=== PATIENT | female | born 1980 | race Caucasian/White ===

== ENCOUNTER 2017-02-17 10:03 | Day surgery (SDC) | payer OTHER ==
[2017-02-14 12:41] VITALS: BMI 18.6
[~2017-02-17 10:03] MED LIST: LACTATED RINGERS 1,000 ML IV SCH
[2017-02-17 11:40] VITALS: RESP 16; TEMP 98.6
[2017-02-17] MEDS ORDERED: LIDOCAINE 1% 20 ML VIAL (10MG/ML) FOR IV START INTRADERMA ONE (11:48)
[2017-02-17] MEDS ORDERED: PROPOFOL 10 MG/ML 20 ML VIAL IV ONE (12:11)
[2017-02-17] MEDS ORDERED: LIDOCAINE 1% INJ 10MG/ML (20 ML MDV) ONE (12:11)
--- NOTE | 2017-02-17 12:22 | P.PCN ---
Date of Procedure: 02/17/17 Procedure(s) Performed: BRIEF HISTORY: Patient is a 36-year-old, pleasant, white female, scheduled for an upper endoscopy as a part of evaluation of abdominal pain, abdominal bloating and possible celiac panel. PROCEDURE PERFORMED: Esophagogastroduodenoscopy with biopsy. PREOPERATIVE DIAGNOSIS: Abdominal pain/abdominal bloating and positive celiac panel IV sedation per anesthesia. PROCEDURE: After informed consent was obtained, the patient was brought into the endoscopy unit. IV sedation was administered by Anesthesia under continuous monitoring. Initially the Olympus GIF-140 video endoscope was inserted into the mouth. Esophagus intubated without any difficulty. It was gradually advanced into the stomach and duodenum and carefully examined. The bulb and the second part of the duodenum appeared normal. Multiple biopsies were done from the duodenum to evaluate for celiac disease. The scope at this time was withdrawn to the stomach, adequately insufflated with air, and upon careful examination, mucosa of the antrum had mild mottling of the mucosa and biopsies were done from this area. The body, cardia and the fundus appeared normal. The scope was then withdrawn into the esophagus. The GE junction was located at 39 cm from the incisors. The esophagus appeared normal. There were no erosions or ulcerations seen and the patient tolerated the procedure well. IMPRESSION: 1. Normal-appearing duodenum, status post multiple biopsies to rule out celiac disease 2. Mild antral gastritis RECOMMENDATIONS: The findings of this examination were discussed with the patient as well as her family. She was advised to follow with the biopsy results.
[2017-02-17 12:54] VITALS: BP 108/74; PULSE 76
== END 2017-02-17 13:15 | disposition home or self-care (01) ==
LOC: ORWHC2ENDO 10:03
PROVIDERS: ATTEND Internal Medicine Gastroenterology
DX: K29.50 Unspecified chronic gastritis without bleeding (principal); Z87.891 Personal history of nicotine dependence; Z88.1 Allergy status to other antibiotic agents
CPT/HCPCS: 81025; 88305; 88342; 43239; J2001; J2704

== ENCOUNTER → 2017-02-20 | Outpatient (CLI) | payer OTHER ==
--- NOTE | 2017-02-20 08:22 | MM ---
Reason for exam: screening (asymptomatic). Baseline mammogram. History: Took hormonal contraceptives beginning at age 20. Physical Findings: Nurse did not find any significant physical abnormalities on exam. MG Screening Mammo w CAD Bilateral CC and MLO view(s) were taken. The breast tissue is extremely dense which could obscure a lesion on mammography. Finding: There are indeterminate grouped/clustered calcifications in the outer quadrant, posterior position of the left breast. These results were verbally communicated with the patient and result sheet given to the patient on 02/20/17. ASSESSMENT: Incomplete: need additional imaging evaluation, BI-RAD 0 RECOMMENDATION: Special view mammogram of the left breast. [facility] will attempt to contact patient to return for supplemental views.
--- NOTE | 2017-02-20 08:24 | MM ---
Reason for exam: additional evaluation requested from abnormal screening. History: Took hormonal contraceptives beginning at age 20. Physical Findings: Breast exam preformed at baseline screening. MG Diagnostic Mammo LT w CAD ML, CC with magnification, and ML with magnification view(s) were taken of the left breast. Finding: There are intermediate concern, suspicious amorphous, heterogeneous, grouped/clustered calcifications in the lower outer quadrant, middle posterior position of the left breast. These results were verbally communicated with the patient and result sheet given to the patient on 02/20/17. ASSESSMENT: Suspicious, BI-RAD 4 RECOMMENDATION: Stereotactic core biopsy of the left breast. Called Dr. Morel with mammographic findings and has scheduled an appointment for the patient for 02/22/17 at 2:[address] Ramires. PRELIMINARY REPORT CALLED AND FAXED TO DR. RAMIRES ON 02/20/17 AT 300/TP.
== END | disposition home or self-care (01) ==
LOC: RADMAMWWP 06:53
PROVIDERS: ATTEND Obstetrics & Gynecology
DX: Z12.31 Encounter for screening mammogram for malignant neoplasm of breast (principal); R92.2 Inconclusive mammogram; R92.8 Other abnormal and inconclusive findings on diagnostic imaging of breast
CPT/HCPCS: G0206; G0202

== ENCOUNTER → 2017-02-27 | Outpatient (CLI) | payer OTHER ==
[2017-02-27 17:31] LABS: CH 32.8; CHCM 35.1; HCT 37.6 % (34.0-46.0); HDW 2.47; HGB 13.1 gm/dL (11.4-16.0); MCH 32.7 pg (25.0-35.0); MCHC 34.9 g/dL (31.0-37.0); MCV 93.7 fL (80.0-100.0); Mean Platelet Volume 8.9; RBC 4.02 m/uL (3.80-5.40); RDW 12.5 % (11.5-15.5); WBC 5.3 k/uL (3.8-10.6)
== END | disposition home or self-care (01) ==
LOC: LABWHC1 16:55
PROVIDERS: ATTEND Surgery
DX: D69.6 Thrombocytopenia, unspecified (principal)
CPT/HCPCS: 36415; 85027

== ENCOUNTER → 2017-03-02 | Day surgery (SDC) | payer OTHER ==
[~2017-03-02] MED LIST changes: +BACITRACIN OINT 1 EACH PACKET TOPICAL ONE; +BUPIVACAINE (PF) 0.25% 30 ML VIAL ONE; -LACTATED RINGERS 1,000 ML IV SCH; +LIDOCAINE 1% INJ 10MG/ML (20 ML MDV) ONE
--- NOTE | 2017-03-03 10:07 | PCN ---
DATE OF PROCEDURE: 03/02/2017 PREOPERATIVE DIAGNOSIS: Abnormal mammogram, left breast. POSTOPERATIVE DIAGNOSIS: Abnormal mammogram, left breast. PROCEDURE: Left stereotactic breast biopsy with tissue marker placement. ANESTHESIA: Local. COMPLICATIONS: None. Primary care is Dr. Bowman. GROSS FINDINGS AND PROCEDURE: Sabrina is a 36-year-old female, had a mammogram done showing some microcalcifications for which stereotactic was recommended. She is taken to the stereotactic suite where the area of concern was marked by the radiologist. Breast was then prepped. Local anesthetic was instilled. The needle is advanced to the appropriate depth. Pre-fire films are obtained. Multiple vacuum-assisted automated cores were then obtained. Specimen mammography did show that there are microcalcifications present. A tissue marker is placed. The needle is withdrawn. Additional mammography showed that the marker to be in good position. Pressure was held by myself for several minutes to do her thrombocytopenia. She did not have any significant bleeding or bruising. A dressing is applied. She is given aftercare instructions. I will see her in the office next week with further recommendations to follow.
--- NOTE | 2017-03-06 11:37 | MM ---
Stereotactic core biopsy left breast. HISTORY: Microcalcifications. The calcifications in question within the left breast were targeted by the undersigned. The examination was performed by the surgeon. Specimen radiograph demonstrates numerous calcifications within the specimen submitted. Post procedural mammogram demonstrates appropriate deployment of radiopaque clip marker. The patient tolerated the procedure well and left the department in stable condition. Pathology results are pending. IMPRESSION: Successful stereotactic core biopsy left breast with pathology results pending. Pathology Results: Benign BREAST, LEFT, CORE BIOPSY: FIBROCYSTIC CHANGES INCLUDING FIBROSIS, CYSTS, AND SCLEROSING ADENOSIS WITH CALCIFICATIONS. Recommendation Follow up mammogram of the left breast in 6 months. GAURANG
== END ==
LOC: RADMAMWWP 12:48
PROVIDERS: ATTEND Surgery
DX: N60.32 Fibrosclerosis of left breast (principal); R92.8 Other abnormal and inconclusive findings on diagnostic imaging of breast; N60.22 Fibroadenosis of left breast; N64.89 Other specified disorders of breast; D69.6 Thrombocytopenia, unspecified; Z88.1 Allergy status to other antibiotic agents
CPT/HCPCS: 88305; 19081; A4648; J2001

== ENCOUNTER 2019-11-09 07:57 | Emergency (ER) | payer BC, OTHER ==
[2019-11-09 08:03] VITALS: TEMP 98.2
[2019-11-09] MEDS ORDERED: LIDOCAINE 1% INJ 10MG/ML (20 ML MDV) SQ ONE (08:18)
[2019-11-09] MEDS ORDERED: DIPH,PERTUS(ACELL)TETVAC-LF 0.5 ML VIAL IM ONE (08:18)
--- NOTE | 2019-11-09 08:20 | ED ---
Wound/Laceration HPI - General Chief Complaint: Wound/Laceration Stated Complaint: Left Thumb Lac Time Seen by Provider: 11/09/19 08:05 Source: patient, RN notes reviewed Mode of arrival: ambulatory Limitations: no limitations - History of Present Illness Initial Comments: This a 39-year-old female presents emergency Department chief complaint of left thumb laceration. Patient states she is trying to get ready states that she cut her thumb with a razor. Patient states it has been persistently bleeding. She is [id number]. He is unsure when her last tetanus was but believes it was 12 years ago. Patient denies any paresthesias or decreased range of motion. - Related Data Home Medications Medication Instructions Recorded Confirmed Cholecalciferol [Vitamin D3] 1,000 unit PO DAILY 02/14/17 02/14/17 Allergies Allergy/AdvReac Type Severity Reaction Status Date / Time gluten Allergy Severe Celiac Verified 11/09/19 08:03 Disease minocycline Allergy Severe Hives Verified 11/09/19 08:03 Review of Systems ROS Statement: Those systems with pertinent positive or pertinent negative responses have been documented in the HPI. ROS Other: All systems not noted in ROS Statement are negative. Past Medical History Additional Past Medical History / Comment(s): Thrombocytompenia History of Any Multi-Drug Resistant Organisms: None Reported Past Surgical History: No Surgical Hx Reported Past Psychological History: No Psychological Hx Reported Smoking Status: Never smoker Past Alcohol Use History: Occasional Past Drug Use History: None Reported General Exam Limitations: no limitations General appearance: alert, in no apparent distress Head exam: Present: atraumatic, normocephalic, normal inspection Respiratory exam: Present: normal lung sounds bilaterally. Absent: respiratory distress, wheezes, rales, rhonchi, stridor Cardiovascular Exam: Present: regular rate, normal rhythm, normal heart sounds. Absent: systolic murmur, diastolic murmur, rubs, gallop, clicks Extremities exam: Present: other (Left thumb there is a 2 cm laceration full range of motion neurovascular intact) Neurological exam: Present: alert Skin exam: Present: warm, dry, intact, normal color. Absent: rash Course Vital Signs 11/09/19 08:01 Temperature 98.2 F Pulse Rate 79 Respiratory 18 Rate Blood Pressure 125/71 O2 Sat by Pulse 98 Oximetry Procedures - Laceration Laceration #1 Consent Obtained: verbal consent Indication: laceration Site: upper extremity (Left thumb) Size (cm): 2 Description: linear Depth: simple, single layer Anesthetic Used: lidocaine 1%, without epi Anesthesia Technique: local infiltration Amount (mls): 3 Pre-repair: wound explored, irrigated extensively, deep structures intact Type of Sutures: nylon Size of Sutures: 4-0 Number of Sutures: 4 Technique: simple, interrupted Patient Tolerated Procedure: well, no complications Medical Decision Making - Medical Decision Making Patient's laceration was not involving deep structures, was cleaned, tetanus is updated was closed using 4 sutures wound care and return parameters were given. Disposition Clinical Impression: Laceration of left thumb Disposition: HOME SELF-CARE Condition: Stable Instructions (If sedation given, give patient instructions): Care For Your Stitches (ED), Finger Laceration (ED) Additional Instructions: Have sutures removed in 10 days.Please return to the Emergency Department if symptoms worsen or any other concerns. Is patient prescribed a controlled substance at d/c from ED?: No Referrals: John Bowman MD [Primary Care Provider] - 1-2 days Time of Disposition: 08:57
[2019-11-09 09:17] VITALS: BP 110/77; PULSE 68; RESP 17
== END 2019-11-09 09:17 | disposition home or self-care (01) ==
LOC: EC 07:57
DX: S61.012A Laceration without foreign body of left thumb without damage to nail, initial encounter (principal); Z23 Encounter for immunization; Z91.018 Allergy to other foods; Z88.1 Allergy status to other antibiotic agents; W26.8XXA Contact with other sharp object(s), not elsewhere classified, initial encounter
CPT/HCPCS: 90715; 99282; 12001; 90471; J2001; 99285

== ENCOUNTER → 2019-12-12 | Outpatient (CLI) | payer BC ==
--- NOTE | 2019-12-13 12:00 | MM ---
Reason for exam: screening (asymptomatic). Last mammogram was performed 2 years and 10 months ago. History: Benign MG stereo VAD BX LT of the left breast, March 02, 2017. Took hormonal contraceptives beginning at age 20. Physical Findings: A clinical breast exam by your physician is recommended on an annual basis and results should be correlated with mammographic findings. MG Screening Mammo w CAD Bilateral CC and MLO view(s) were taken. Prior study comparison: February 20, 2017, left breast MG diagnostic mammo LT w CAD. February 20, 2017, bilateral MG screening mammo w CAD. The breast tissue is extremely dense which could obscure a lesion on mammography. Benign appearing calcifications in the left breast with adjacent biopsy marker. No suspicious abnormality. No significant changes when compared with prior studies. ASSESSMENT: Benign, BI-RAD 2 RECOMMENDATION: Routine screening mammogram of both breasts in 1 year.
== END ==
LOC: RADMAMWWP 07:17
PROVIDERS: ATTEND Obstetrics & Gynecology
DX: Z12.31 Encounter for screening mammogram for malignant neoplasm of breast (principal)
CPT/HCPCS: 77067

== ENCOUNTER → 2022-02-21 | Outpatient (CLI) | payer BC ==
[2022-02-21 23:41] LABS: Testosterone 27.9 ng/mL (9.01-47.94)
[2022-02-21 23:58] LABS: Basophils # (A) 0.01 X 10*3/uL (0.00-0.10); Basophils % (A) 0.2 %; Eosinophils # (A) 0.11 X 10*3/uL (0.04-0.35); Eosinophils % (A) 2.6 %; HCT 40.7 % (37.2-46.3); HGB 13.6 g/dL (12.0-15.0); Immature Grans, Automated 0.5 %; Lymphocytes # (A) 0.81 X 10*3/uL (0.90-5.00); Lymphocytes % (A) 19.2 %; MCH 33.5 pg (27.0-32.0); MCHC 33.4 g/dL (32.0-37.0); MCV 100.2 fL (80.0-97.0); Mean Platelet Volume 12.8 fL (9.5-12.2); Monocytes # (A) 0.26 X 10*3/uL (0.20-1.00); Monocytes % (A) 6.2 %; NRBC Per 100 WBC 0 /100 WBCS (0.0-0.0); Neutrophils % (A) 71.3 %; Platelet Count 82 X 10*3/uL (140-440); RBC 4.06 X 10*6/uL (4.10-5.20); RDW 11.8 % (11.5-14.5); WBC 4.21 X 10*3/uL (4.50-10.00)
[2022-02-21 23:59] LABS: RBC Morphology NORMAL
[2022-02-22 00:05] LABS: Hepatitis B Surface Antigen Nonreactive (Nonreactive)
[2022-02-22 00:19] LABS: % Iron Saturation 30.19 (12.00-45.00); Albumin/Globulin Ratio 3.09 (1.60-3.17); Anion Gap 10.8 mmol/L (10.00-18.00); BUN/Creat Ratio 15.13 Ratio (12.00-20.00); Blood Urea Nitrogen 6.4 mg/dL (9.0-27.0); Calcium 9.6 mg/dL (8.7-10.3); Carbon Dioxide 27.4 mmol/L (20.0-27.5); Ferritin 44.7 ng/mL (10.0-291.0); Globulin 1.6 g/dL (1.6-3.3); Non-African American GFR(CKD) 127.7 (60.0-200.0); Potassium 3.8 mmol/L (3.5-5.5); T4, Free (Free Thyroxine) 1.09 ng/dL (0.800-1.800); Total Bilirubin 0.6 mg/dL (0.30-1.20); Total Protein 6.6 g/dL (6.2-8.2)
[2022-02-22 06:13] LABS: HIV 2 AB Non-Reactive (Non-Reactive); HIV AB P24 Non-Reactive (Non-Reactive); HIV P24 AG Non-Reactive (Non-Reactive)
[2022-02-22 12:33] LABS: Zinc, Serum 77 ug/dL (60-130)
[2022-02-23 06:15] LABS: Vit B1(Thiamine) 74 ug/L (38-122)
[2022-02-23 07:41] LABS: Herpes simplex I and/or II IgM 0.26 INDEX (<=0.90); Herpes simplex IgG I Ab <0.01 (< or = 0.90); Herpes simplex IgG II Ab 0.07 (< or = 0.90)
== END | disposition home or self-care (01) ==
LOC: LABWHC1 13:58
DX: Z11.3 Encounter for screening for infections with a predominantly sexual mode of transmission (principal); D22.5 Melanocytic nevi of trunk; D22.4 Melanocytic nevi of scalp and neck; D23.72 Other benign neoplasm of skin of left lower limb, including hip; I78.8 Other diseases of capillaries; D48.5 Neoplasm of uncertain behavior of skin; L64.8 Other androgenic alopecia
CPT/HCPCS: 36415; 80053; 82607; 82626; 82728; 83540; 83550; 84144; 84146; 84402; 84403; 84425; 84439; 84443; 84630; 85025; 86694; 86695; 86696; 86780; 86800; 87340; 87390

== ENCOUNTER → 2022-02-21 | Outpatient (CLI) | payer BC ==
--- NOTE | 2022-02-23 13:35 | MM ---
Reason for exam: screening (asymptomatic). Last mammogram was performed 2 years and 2 months ago. History: Benign MG stereo VAD BX LT of the left breast, March 02, 2017. Took hormonal contraceptives beginning at age 20. Physical Findings: A clinical breast exam by your physician is recommended on an annual basis and results should be correlated with mammographic findings. MG Screening Mammo w CAD Bilateral CC and MLO view(s) were taken. Prior study comparison: December 12, 2019, bilateral MG screening mammo w CAD. February 20, 2017, left breast MG diagnostic mammo LT w CAD. The breast tissue is extremely dense which could obscure a lesion on mammography. There are benign appearing round, regional calcifications in the left breast. Previous mammotome biopsy in the left breast. There is no new discrete abnormality. ASSESSMENT: Benign, BI-RAD 2 RECOMMENDATION: Routine screening mammogram of both breasts in 1 year. Some consider bilateral ultrasound surveillance in patient with extremely dense fibroglandular tissue.
== END | disposition home or self-care (01) ==
LOC: RADMAMWWP 13:15
PROVIDERS: ATTEND Obstetrics & Gynecology
DX: Z12.31 Encounter for screening mammogram for malignant neoplasm of breast (principal)
CPT/HCPCS: 77067

== ENCOUNTER → 2023-08-30 | Outpatient (CLI) | payer OTHER ==
--- NOTE | 2023-08-30 07:46 | MM ---
Reason for Exam: Clinical finding. Last mammogram was performed 1 year(s) and 7 month(s) ago. Indicated Problems: Large axillary lymph nodes of the left side for 2 Year(s). Patient History: Menarche at age 15. First Full-Term at age 19. Premenopausal. Patient has history of breast feeding. Hormonal Contraceptives, from age 20 until age 27. 03/02/2017, Benign Core Biopsy on the left side. Risk Values: Daiana 5 year model risk: 0.7%. NCI Lifetime model risk: 8.0%. Prior Study Comparison: 02/20/2017 Bilateral Screening Mammogram, [facility]. 02/20/2017 Left Diagnostic Mammogram, [facility]. 12/12/2019 Bilateral Screening Mammogram, [facility]. 02/21/2022 Bilateral Screening Mammogram, [facility]. Tissue Density: The breast tissue is extremely dense which could obscure a lesion on mammography. Findings: Analyzed By CAD. No suspicious new mass, calcification, or architectural distortion within either breast. Stable benign appearing calcifications within the left breast. Biopsy clip within the left breast. Overall Assessment: Incomplete: need additional imaging evaluation, BI-RAD 0 Management: Diagnostic Breast Ultrasound of the left breast. A clinical breast exam by your physician is recommended on an annual basis and results should be correlated with mammographic findings. This exam should not preclude additional follow-up of suspicious palpable abnormalities. Results were given to the patient verbally at the time of exam. Note on Daiana scores and lifetime risk: 1. A Daiana score greater than 3% is considered moderate risk. If this is the case, consider specialist referral to assess eligibility for a risk reducing agent. If overall lifetime risk for the development of breast cancer is 20% or higher, the patient may qualify for future screening with alternating mammogram and breast MRI. Electronically signed and approved by: Chace Marie D.O.
--- NOTE | 2023-08-30 08:10 | USB ---
Reason for Exam: Clinical finding. Patient History: Menarche at age 15. First Full-Term at age 19. Premenopausal. Patient has history of breast feeding. Hormonal Contraceptives, from age 20 until age 27. 03/02/2017, Benign Core Biopsy on the left side. Risk Values: Daiana 5 year model risk: 0.7%. NCI Lifetime model risk: 8.0%. Technique: Method: Targeted. Prior Study Comparison: 02/20/2017 Left Diagnostic Mammogram, [facility]. 12/12/2019 Bilateral Screening Mammogram, [facility]. 02/21/2022 Bilateral Screening Mammogram, [facility]. Findings: The area of palpable concern of the left breast, the axilla of the left breast and the retroareolar of the left breast were scanned. Targeted ultrasound of the left breast/axilla at 1:00 12 cm from the nipple at site of palpable abnormality was performed. No solid or cystic mass identified. Overall Assessment: Benign, BI-RAD 2 Management: Screening Mammogram of both breasts in 1 year. A clinical breast exam by your physician is recommended on an annual basis and results should be correlated with mammographic findings. This exam should not preclude additional follow-up of suspicious palpable abnormalities. Results were given to the patient verbally at the time of exam. Electronically signed and approved by: Chace Marie D.O.
== END | disposition home or self-care (01) ==
LOC: RADMAMWWP 07:04
PROVIDERS: ATTEND Obstetrics & Gynecology
DX: R92.333 Mammographic heterogeneous density, bilateral breasts (principal); N63.20 Unspecified lump in the left breast, unspecified quadrant
CPT/HCPCS: 77062; 77066

== ENCOUNTER 2023-12-26 10:48 | Emergency (ER) | payer OTHER ==
--- NOTE | 2023-12-26 10:57 | ED ---
Arrhythmia/Palpitations HPI - General Source: patient, RN notes reviewed Mode of arrival: ambulatory Limitations: no limitations - History of Present Illness MD Complaint: "heart racing" <Dixie Sullivan - Last Filed: 12/26/23 11:10> - General Source: patient, RN notes reviewed, old records reviewed <Papito Roberson - Last Filed: 12/26/23 14:18> - General Chief Complaint: Arrhythmia/Palpitations Stated Complaint: Tachy Time Seen by Provider: 12/26/23 10:55 - History of Present Illness Initial Comments: This is a 43 year old female who presents to the emergency department for palpitations. States that she has felt like her heart has been racing for the last hour. This has happened to her before, however it always resolves on her own, which has not been the case this time. Denies any cardiac history. She does have a family hx of a-fib. (Dixie Sullivan) Is a 43-year-old female presents emergency department complaining of palpitations. Has a history of these however they lasted little bit longer earlier today which is why she presents for further evaluation. Endorses so mewhat chest tightness but mostly palpitations. States she does have a history of anxiety as well as thrombocytopenia. Has a family history of A-fib. Was brought here for further evaluation. No other acute complaints at this time. States palpitations have resolved. Initially evaluated as a quick note. Denies any fevers, chills, cough. (Papito Roberson) - Related Data Previous Rx's Medication Instructions Recorded LORazepam [Ativan] 0.5 mg PO BID PRN 3 Days #6 tab 12/26/23 Allergies Allergy/AdvReac Type Severity Reaction Status Date / Time gluten Allergy Severe Celiac Verified 12/26/23 14:09 Disease minocycline Allergy Severe Hives Verified 12/26/23 14:09 Review of Systems ROS Other: All systems not noted in ROS Statement are negative. <Dixie Sullivan - Last Filed: 12/26/23 11:10> ROS Other: All systems not noted in ROS Statement are negative. <Papito Roberson - Last Filed: 12/26/23 14:18> ROS Statement: Those systems with pertinent positive or pertinent negative responses have been documented in the HPI. Review of Systems: CONST: Denies fever EYES: Denies blurry vision ENT: Denies nasal congestion C/V: Denies Chest pain RESP: Denies shortness of breath GI: Denies abdominal pain : Denies dysuria SKIN: Denies rash. MSK: Denies joint pain. NEURO: Denies headache (Papito Roberson) Past Medical History Additional Past Medical History / Comment(s): Thrombocytompenia History of Any Multi-Drug Resistant Organisms: None Reported Past Surgical History: No Surgical Hx Reported Past Psychological History: No Psychological Hx Reported Past Alcohol Use History: Occasional Past Drug Use History: None Reported <Dixie Sullivan - Last Filed: 12/26/23 11:10> General Exam <Dixie Sullivan - Last Filed: 12/26/23 11:10> <Papito Roberson - Last Filed: 12/26/23 14:18> - General Exam Comments Initial Comments: Visual Physical Exam Vital signs reviewed General: Well-appearing, nontoxic, no acute distress. Head: Normocephalic, atraumatic Eyes: PERRLA, EOMI ENT: Airway patent Chest: Nonlabored breathing Skin: No visual rash, normal skin tone Neuro: Alert and oriented 3 Musculoskeletal: No gross abnormalities (Dixie Sullivan) General: Appears anxious HEAD: Normal with no signs of head trauma. EYES: PERRLA, EOMI, conjunctiva normal, no discharge. ENT: Hearing grossly intact, normal oropharynx. RESPIRATORY: Clear breath sounds bilaterally. No wheezes, rales, or rhonchi. C/V: Regular rate and rhythm. S1 and S2 auscultated, no edema, peripheral pulses 2+ and intact throughout ABD: Abd is soft, nontender, nondistended EXT: Normal range of motion, no obvious deformity SKIN: No rashes or lesions observed on exposed skin. NEURO: Alert and oriented x 4. (Papito Roberson) Course Vital Signs 12/26/23 11:06 Temperature 98.0 F Pulse Rate 92 Respiratory 18 Rate Blood Pressure 131/83 O2 Sat by Pulse 98 Oximetry Medical Decision Making <Dixie Sullivan - Last Filed: 12/26/23 11:10> - Lab Data Result diagrams: 12/26/23 12:15 12/26/23 12:15 - EKG Data -: EKG Interpreted by Me <Papito Roberson - Last Filed: 12/26/23 14:18> - Medical Decision Making I performed the QuickNote portion of this chart. Signed Dixie Sullivan PA-C. (Dixie Sullivan) Was pt. sent in by a medical professional or institution ([facility]ISTOP[facility]ksdale, DUNGEON MASTER, urgent c are, hospital, or custodial...) When possible be specific @ -No Did you speak to anyone other than the patient for history (EMS, parent, family, police, friend...)? What history was obtained from this source @ -No Did you review nursing and triage notes (agree or disagree)? Why? @ -I reviewed and agree with nursing and triage notes Were old charts reviewed (outside hosp., previous admission, EMS record, old EKG, old radiological studies, urgent care reports/EKG's, custodial records)? Report findings @ -No old charts were reviewed Differential Diagnosis (chest pain, altered mental status, abdominal pain women, abdominal pain men, vaginal bleeding, weakness, fever, dyspnea, syncope, headache, dizziness, GI bleed, back pain, seizure, CVA, palpatations, mental health, musculoskeletal)? @ -Differential Palpitations Ventricular arrhythmias, atrial arrhythmias, myocardial infarction, anemia, thyrotoxicosis, electrolyte imbalance, hypokalemia, pulmonary embolism, pulmonary disease, drugs, alcohol, anxiety, stress.... This is not meant to be an all-inclusive list. EKG interpreted by me (3pts min.). @ -As above X-rays interpreted by me (1pt min.). @ -Chest x-ray reveals no obvious acute cardiopulmonary process. CT interpreted by me (1pt min.). @ -None done U/S interpreted by me (1pt. min.). @ -None done What testing was considered but not performed or refused? (CT, X-rays, U/S, labs)? Why? @ -None What meds were considered but not given or refused? Why? @ -None Did you discuss the management of the patient with other professionals (professionals i.e. CRISTOPHER Barksdale, DUNGEON MASTER, lab, RT, psych nurse, manager social responsibility, airframe and power plant mechanic, teacher, loan workout officer, case operator)? Give summary @ -No Was smoking cessation discussed for >3mins.? @ -No Was critical care preformed (if so, how long)? @ -No Were there social determinants of health that impacted care today? How? (Homelessness, low income, unemployed, alcoholism, drug addiction, transportation, low edu. Level, literacy, decrease access to med. care, nursing home, rehab)? @ -No Was there de-escalation of care discussed even if they declined (Discuss DNR or withdrawal of care, Hospice)? DNR status @ -No What co-morbidities impacted this encounter? (DM, HTN, Smoking, COPD, CAD, Cancer, CVA, ARF, Chemo, Hep., AIDS, mental health diagnosis, sleep apnea, morbid obesity)? @ -None Was patient admitted / discharged? Hospital course, mention meds given and route, prescriptions, significant lab abnormalities, going to OR and other pertinent info. @ -Based on the patient's presentation and physical exam, presents for palpitations. Initially seen as a quick note. Patient does appear anxious. She will receive a small dose of Ativan and we will obtain cardiopulmonary workup. Patient in agreement this plan. Vital signs within acceptable limits. Currently asymptomatic. EKG showed no signs of acute ischemia. Chest x-ray unremarkable. Vital signs are within acceptable limits except for the chronic thrombocytopenia. This includes a normal TSH, negative test, undetectable troponin. On reevaluation, patient remains asymptomatic. We discussed her workup. I believe this is likely secondary to anxiety and I did offer a short course of Ativan for home. She was in agreement this plan. Recommended follow-up with her PCP. I will provide the patient with a prescription for Ativan. I instructed the patient to follow up with their PCP in the next 1-3 days.. I explained that the patient should return to the emergency department if they experience any worsening symptoms. Strict return precautions were discussed with the patient. The patient expressed understanding of these instructions. I answered all q uestions that the patient had. The patient was discharged home in good condition with their prescriptions and follow up information. Undiagnosed new problem with uncertain prognosis? @ -No Drug Therapy requiring intensive monitoring for toxicity (Heparin, Nitro, Insulin, Cardizem)? @ -No Were any procedures done? @ -No Diagnosis/symptom? @ -Heart palpitations, anxiety Acute, or Chronic, or Acute on Chronic? @ -Acute on chronic Uncomplicated (without systemic symptoms) or Complicated (systemic symptoms)? @ -Uncomplicated Side effects of treatment? @ -No Exacerbation, Progression, or Severe Exacerbation? @ -No Poses a threat to life or bodily function? How? (Chest pain, USA, NH, pneumonia, PE, COPD, DKA, ARF, appy, cholecystitis, CVA, Diverticulitis, Homicidal, Suicidal, threat to staff... and all critical care pts) @ -No Diagnosis/symptom? @ -Thrombocytopenia Acute, or Chronic, or Acute on Chronic? @ -Chronic Uncomplicated (without systemic symptoms) or Complicated (systemic symptoms)? @ -Uncomplicated Side effects of treatment? @ -None Exacerbation, Progression, or Severe Exacerbation] @ -No Poses a threat to life or bodily function? @ -No (Papito Roberson) - Lab Data Lab Results 12/26/23 12/26/23 12/26/23 Range/Units 12:15 12:15 12:15 WBC 4.5 (3.8-10.6) k/uL RBC 4.18 (3.80-5.40) m/uL Hgb 13.8 (11.4-16.0) gm/dL Hct 40.1 (34.0-46.0) % MCV 96.1 (80.0-100.0) fL MCH 33.1 (25.0-35.0) pg MCHC 34.5 (31.0-37.0) g/dL RDW 12.2 (11.5-15.5) % Plt Count 81 L (150-450) k/uL MPV 10.0 Neutrophils % 70 % Lymphocytes % 20 % Monocytes % 5 % Eosinophils % 3 % Basophils % 0 % Neutrophils # 3.2 (1.3-7.7) k/uL Lymphocytes # 0.9 L (1.0-4.8) k/uL Monocytes # 0.2 (0-1.0) k/uL Eosinophils # 0.1 (0-0.7) k/uL Basophils # 0.0 (0-0.2) k/uL Manual Slide Review Perf RBC Morphology Normal PT 11.3 (10.0-12.5) sec INR 1.0 (<1.2) APTT 24.9 (22.0-30.0) sec Sodium 140 (137-145) mmol/L Potassium 4.6 (3.5-5.1) mmol/L Chloride 107 (98-107) mmol/L Carbon Dioxide 28 (22-30) mmol/L Anion Gap 5 mmol/L BUN 7 (7-17) mg/dL Creatinine 0.35 L (0.52-1.04) mg/dL Est GFR (CKD-EPI)AfAm >90 (>60 ml/min/1.73 sqM) Est GFR (CKD-EPI)NonAf >90 (>60 ml/min/1.73 sqM) Glucose 97 (74-99) mg/dL Calcium 9.5 (8.4-10.2) mg/dL Magnesium 1.9 (1.6-2.3) mg/dL Total Bilirubin 1.1 (0.2-1.3) mg/dL AST 30 (14-36) U/L ALT 16 (4-34) U/L Alkaline Phosphatase 72 (38-126) U/L Troponin I (0.000-0.034) ng/mL Total Protein 6.7 (6.3-8.2) g/dL Albumin 4.7 (3.5-5.0) g/dL TSH 0.557 (0.465-4.680) mIU/L HCG, Qual Not Detected 12/26/23 Range/Units 12:15 WBC (3.8-10.6) k/uL RBC (3.80-5.40) m/uL Hgb (11.4-16.0) gm/dL Hct (34.0-46.0) % MCV (80.0-100.0) fL MCH (25.0-35.0) pg MCHC (31.0-37.0) g/dL RDW (11.5-15.5) % Plt Count (150-450) k/uL MPV Neutrophils % % Lymphocytes % % Monocytes % % Eosinophils % % Basophils % % Neutrophils # (1.3-7.7) k/uL Lymphocytes # (1.0-4.8) k/uL Monocytes # (0-1.0) k/uL Eosinophils # (0-0.7) k/uL Basophils # (0-0.2) k/uL Manual Slide Review RBC Morphology PT (10.0-12.5) sec INR (<1.2) APTT (22.0-30.0) sec Sodium (137-145) mmol/L Potassium (3.5-5.1) mmol/L Chloride (98-107) mmol/L Carbon Dioxide (22-30) mmol/L Anion Gap mmol/L BUN (7-17) mg/dL Creatinine (0.52-1.04) mg/dL Est GFR (CKD-EPI)AfAm (>60 ml/min/1.73 sqM) Est GFR (CKD-EPI)NonAf (>60 ml/min/1.73 sqM) Glucose (74-99) mg/dL Calcium (8.4-10.2) mg/dL Magnesium (1.6-2.3) mg/dL Total Bilirubin (0.2-1.3) mg/dL AST (14-36) U/L ALT (4-34) U/L Alkaline Phosphatase (38-126) U/L Troponin I <0.012 (0.000-0.034) ng/mL Total Protein (6.3-8.2) g/dL Albumin (3.5-5.0) g/dL TSH (0.465-4.680) mIU/L HCG, Qual - EKG Data EKG Comments: 12-lead Electrocardiogram Interpretation Note EKG was reviewed and interpreted by myself. 12-lead ECG performed at 1159 is interpreted by me as revealing normal sinus rhythm at a rate of 80 beats per minute. Right axis deviation. IL interval is 138 ms, QRS duration is 91 ms, QTc is 402 ms. Appears to have an incomplete right bundle branch block.. There were no ST or T wave abnormalities to suggest myocardial ischemia or injury. R wave progression across the precordium was satisfactory. By my interpretation this EKG is non-diagnostic for acute ischemia. (Papito Roberson) Disposition <Dixie Sullivan - Last Filed: 12/26/23 11:10> Is patient prescribed a controlled substance at d/c from ED?: Yes When asked, does pt state using other controlled substances?: No If prescribed controlled substance>3 days was MAPS reviewed?: Prescribed <3 Days Time of Disposition: 13:58 <Papito Roberson - Last Filed: 12/26/23 14:18> Clinical Impression: Heart palpitations, Anxiety, Thrombocytopenia Disposition: HOME SELF-CARE Condition: Good Instructions (If sedation given, give patient instructions): Heart Palpitations (ED) Prescriptions: LORazepam [Ativan] 0.5 mg PO BID PRN 3 Days #6 tab PRN Reason: Anxiety Referrals: John Bowman MD [Primary Care Provider] - 1-2 days
[2023-12-26 11:21] VITALS: RESP 18; TEMP 98
[2023-12-26 12:29] LABS: Basophils % (A) 0 %; Eosinophils # (A) 0.1 k/uL (0-0.7); Eosinophils % (A) 3 %; HCT 40.1 % (34.0-46.0); HGB 13.8 gm/dL (11.4-16.0); Lymphocytes # (A) 0.9 k/uL (1.0-4.8); Lymphocytes % (A) 20 %; MCH 33.1 pg (25.0-35.0); MCHC 34.5 g/dL (31.0-37.0); MCV 96.1 fL (80.0-100.0); Monocytes # (A) 0.2 k/uL (0-1.0); Monocytes % (A) 5 %; Neutrophils # (A) 3.2 k/uL (1.3-7.7); Neutrophils % (A) 70 %; RBC 4.18 m/uL (3.80-5.40); RDW 12.2 % (11.5-15.5); WBC 4.5 k/uL (3.8-10.6)
[2023-12-26 12:39] LABS: HCG,Qualitative Serum Not Detected
[2023-12-26 12:41] LABS: ALT 16 U/L (4-34); AST 30 U/L (14-36); African American GFR (CKD) >90 (>60 ml/min/1.73 sqM); Albumin 4.7 g/dL (3.5-5.0); Alkaline Phosphatase 72 U/L (38-126); Anion Gap 5 mmol/L; Blood Urea Nitrogen 7 mg/dL (7-17); Calcium 9.5 mg/dL (8.4-10.2); Carbon Dioxide 28 mmol/L (22-30); Chloride 107 mmol/L (98-107); Glucose 97 mg/dL (74-99); Magnesium 1.9 mg/dL (1.6-2.3); Non-African American GFR(CKD) >90 (>60 ml/min/1.73 sqM); Potassium 4.6 mmol/L (3.5-5.1); Sodium 140 mmol/L (137-145); Total Bilirubin 1.1 mg/dL (0.2-1.3); Total Protein 6.7 g/dL (6.3-8.2)
--- NOTE | 2023-12-26 12:41 | XR ---
EXAMINATION TYPE: XR chest 2V DATE OF EXAM: 12/26/2023 12:36 PM CLINICAL INDICATION:Female, 43 years old with history of Tachycardia; COMPARISON: None TECHNIQUE: XR chest 2V Frontal and lateral views of the chest. FINDINGS: Lungs/Pleura: There is no evidence of pleural effusion, focal consolidation, or pneumothorax. Pulmonary vascularity: Unremarkable. Heart/mediastinum: Cardiomediastinal silhouette is unremarkable. Musculoskeletal: No acute osseous pathology. IMPRESSION: No acute cardiopulmonary disease/process.
[2023-12-26 12:51] LABS: Platelet Count 81 k/uL (150-450)
[2023-12-26 12:52] LABS: Partial Thromboplastin Time 24.9 sec (22.0-30.0); Prothrombin Time 11.3 sec (10.0-12.5); RBC Morphology Normal
[2023-12-26] MEDS: LORazepam 1 MG TAB PO STA (13:45)
[2023-12-26 15:07] VITALS: BP 118/81; PULSE 77
== END 2023-12-26 14:36 | disposition home or self-care (01) ==
LOC: EC 10:48
DX: D69.6 Thrombocytopenia, unspecified (principal); R00.2 Palpitations; F41.9 Anxiety disorder, unspecified; Z88.1 Allergy status to other antibiotic agents; Z88.8 Allergy status to other drugs, medicaments and biological substances
CPT/HCPCS: 36415; 71046; 80053; 83735; 84443; 84484; 84703; 85025; 85610; 85730; 93005; 99285